=== PATIENT | female | born 1955 | race Caucasian/White ===

== ENCOUNTER 2017-11-17 08:28 | Outpatient (CLI) ==
--- NOTE | 2017-11-17 09:51 | RS.MODBRM ---
Subjective Date of Evaluation: 11/17/17 Treatment Diagnosis: Oropharyngeal dysphagia Current Level of Function: This 61 year old female has a hx of swallowing difficulty with definite penetration on thin liquids. Pt has a hx with esophageal problems including a narrow upper esophagus sphincter, with 1x stretched, and moderate-severe GERD. The pt completed eight weeks of swallow therapy receiving services 2x/week with neuromuscular electrical stimulation. At this time, pt demonstrates minimal to no difficulty with swallow function. However, inconsistent coughs and throat clears are noted during PO intake. Current Diet: Mechanical soft diet texture with thin liquids Current Subjective/complaints:: The patient had a hx of food sticking in throat , severe GERD symptoms, and excessive coughing with meal consumption and post PO intake. Currently, the pt reports no symptoms or difficulty with swallowing mechanical soft food textures and thin liquids. Pt has started consuming regular diet texture with some restrictions. During skilled therapy occasional throat clears and delayed coughing is noted, however that may be attributed to tobacco abuse. Patient's Goals: To consume safest and least restrictive diet texture. Food Presented Thin Liquid: cup (Consecutive open cup drinks with mild swallow delay. No penetration or aspiration. ) Other:: Regular diet texture with no aspiration/penetration Oral Phase - Oral Phase Labial Closure: WFL Bolus Formation: WFL Mastication: WFL Lingual Movement: WFL A/P Propulsion: WFL Premature Vallecular Pooling: None Oral Residue: Scant Pharyngeal Phase Pharyngeal Response: Mild Impairment (Mild delay in swallow response with thin liquids falling over tip of vallecular prior to initiation of swallow.) Base of Tongue: WFL Epiglottic Movement: Mild Impairment (Mild impairment with full epiglottic inversion. Cervical spine at C4-6 with small buldge on pharyngeal wall, impacting full range of inversion with epiglottis. Epiglottis inverted functionally, leaving no residuals in vallecular space.) Laryngeal Excursion: WFL Vallecular Residue: None Pyriform Residue: None Comments:: Pharyngeal phase with minimal deficits. Mild swallow delay was characterized by thin liquids pooling over vallecular tip as swallow response was initiated. Pt required two swallows occasionally to clear liquids. One swallow was observed frequently to clear thin liquids. No coughing or throat clears noted with thin liquids. No penetration or aspiration observed over multiple open cup trials with thin liquids. Summary and Recommendations - Recommendations PO Diet: Regular (With some restrictions due to allergies. ), Mechanical Soft ( As warranted due to esophagus function.), Moist (Due to reported moderate xerostomia.) Comments:: Enriqueta's swallow was characterized WFL with a minimal swallow delay. All swallow structures functioned within normal limits. Minimal deficits with epiglottic inversion were observed due to restricted movement from pharyngeal wall. No aspiration or penetration was observed. Upper esophageal sphincter was observed without deficits. No pooling in UES was observed over multiple trials. No fatigue was noted with swallow structures after multiple trials. Pt safe to consume regular diet texture with some restrictions and thin liquids. Functional Reporting G Codes: Swallowing Current CI Goal CI Discharge CI Severity Impairment Rationale: Mechanical soft diet texture as warranted for RENU reasons. Plan Duration of Treatment: One Time Treatment Anticipated Discharge Destination: Home Comments: Pt receives outpatient swallow therapy and will be discharged on . - Treatment Code (1) Oropharyngeal dysphagia Code(s): R13.12 - DYSPHAGIA, OROPHARYNGEAL PHASE
--- NOTE | 2017-11-17 10:18 | DI ---
EXAM: Modified barium swallow. History: Dysphagia. Technique: Lateral video fluoroscopy was performed in conjunction with speech therapy using multiple consistencies to evaluate swallowing function. Findings / impression: No aspiration or penetration was observed. Patient did well with all consist encies. Please see dedicated speech pathology report for additional details.
== END 2017-11-17 08:29 | disposition home or self-care (01) ==
LOC: RAD 08:28
PROVIDERS: ATTEND Family Medicine
DX: R13.10 Dysphagia, unspecified (principal)